=== PATIENT | female | born 1975 | race Caucasian/White ===

== ENCOUNTER → 2016-08-02 | Outpatient (CLI) | payer OTHER ==
[~2016-08-02] MED LIST: NO MEDICATIONS; SKELAXIN PO; VOLTAREN75 MG PO
--- NOTE | ~2016-08-02 | US6 ---
[facility] A Service of [facility] RADIOLOGY TEXT RESULTS PATIENT: NESS TREVIZO LOCATION: US : 77 UNIT #: [id number] AGE: [address]: Humza Lazaro MD SEX: F ORDER DR: [id number] [facility]. [place], [place] [address] [id number] O MR#: [id number] Acc #: [id number] NAME: NESS TREVIZO : 1975 SEX: F STUDY DATE/TIME: 08/02/2016 9:28 UNIT: CGUS ROOM: STUDY DESCRIPTION: US Abdominal Limited Attending Physician: Humza Lazaro M.D. Referring Physician: Humza Lazaro M.D. Ordering Physician: Humza Lazaro M.D. Primary Care Physician: Humza Lazaro M.D. MEDICAL IMAGING REPORT This report is preliminary unless electronic signature is present EXAM Right upper quadrant abdominal ultrasound. HISTORY Nausea for the past few weeks. Elevated liver enzyme levels. PROCEDURE Grayscale and Doppler imaging, right upper quadrant of the abdomen. COMPARISON None FINDINGS Visualized portions of the pancreas are unremarkable. Liver measures 16.6 cm. Common duct measures 3 mm. Unremarkable right kidney measuring approximately 11.1 cm. There are several stones in the gallbladder. There is no gallbladder wall thickening or pericholecystic fluid. IMPRESSION Cholelithiasis. No sonographic evidence for acute cholecystitis. Dictated by... Omero Clark M.D. THIS IS AN ELECTRONICALLY VERIFIED REPORT Omero Clark M.D. at 08/03/2016 7:05 AM DARIEN/richard TD: 08/02/2016 13:02 JOB #: [id number] [facility] A Service [facility] RADIOLOGY TEXT RESULTS PATIENT: NESS TREVIZO LOCATION: [facility] : [birth year] UNIT #: [id number] AGE: [address]: Humza Lazaro MD SEX: F ORDER DR: MEDICAL IMAGING REPORT Page 1 of 1 COPY
== END | disposition home or self-care (01) ==
LOC: CGUS 08:59
DX: R11.0 Nausea (principal); K80.20 Calculus of gallbladder without cholecystitis without obstruction
CPT/HCPCS: 76705

== ENCOUNTER 2016-08-09 14:35 | Emergency (ER) | payer OTHER ==
[2016-08-09 14:59] LABS: URINE SOURCE CLEAN CATCH
[2016-08-09 15:02] LABS: URINE APPEARANCE CLEAR; URINE BILIRUBIN NEG (NEG); URINE BLOOD 3+ (NEG); URINE COLOR YELLOW; URINE GLUCOSE NEG (NORM); URINE KETONE NEG (NEG); URINE LEUKOCYTE ESTERASE NEG (NEG); URINE NITRATE NEG (NEG); URINE PROTEIN TRACE (NEG); URINE SPECIFIC GRAVITY >=1.030 (1.003-1.035); URINE UROBILINOGEN 0.2 MG/DL (NORM)
[2016-08-09 15:09] LABS: MICRO INDICATED? YES
[2016-08-09 15:21] LABS: CULTURE INDICATED? NO; URINE BACTERIA NEG (NEG); URINE RBC 100-200 /[HPF] (0-2); URINE WBC 0-2 /[HPF] (0-5)
== END 2016-08-09 15:48 | disposition home or self-care (01) ==
LOC: SED 14:35
PROVIDERS: Emergency Medicine
DX: S39.012A Strain of muscle, fascia and tendon of lower back, initial encounter (principal); R31.9 Hematuria, unspecified; F17.200 Nicotine dependence, unspecified, uncomplicated; Z79.899 Other long term (current) drug therapy; X50.9XXA Other and unspecified overexertion or strenuous movements or postures, initial encounter
CPT/HCPCS: 81003; 84703; 99284

== ENCOUNTER → 2016-11-15 | Outpatient (CLI) | payer OTHER ==
--- NOTE | ~2016-11-15 | US98 ---
[facility] A Service of [facility] RADIOLOGY TEXT RESULTS PATIENT: NESS TREVIZO LOCATION: [facility] : 77 UNIT #: [id number] AGE: [address]: Jerri Latif SEX: F ORDER DR: [id number] [address] [address] [id number] O MR#: [id number] Acc #: [id number] NAME: NESS TREVIZO : 1975 SEX: F STUDY DATE/TIME: 11/15/2016 13:06 UNIT: SGUS ROOM: STUDY DESCRIPTION: US Pelvic Non-OB Complete Attending Physician: Jerri Latif A.P.R.N. Referring Physician: Jerri Latif A.P.R.N. Ordering Physician: Jerri Latif A.P.R.N. Primary Care Physician: Humza Lazaro M.D. MEDICAL IMAGING REPORT This report is preliminary unless electronic signature is present. EXAM Pelvic ultrasound INDICATIONS IUD in place. Observation for presence of IUD. Vaginal spotting off and on for the past 2 months. PROCEDURE Colvin-scale and Doppler imaging of the pelvis via transabdominal and transvaginal approach. FINDINGS Uterus is anteverted measures 8.5 x 3.7 x 5.6 cm. Right ovary measures 2.4 x 2.0 x 3.5 cm. There is an IUD is seen in the lower uterine segment and upper endocervical canal. There is a 7 mm nabothian cyst in the cervix. Endometrium measures approximately 5 mm in thickness. The left ovary not well seen but measures approximately 2.4 x 2.38 x 2.6 cm. IMPRESSION 1. IUD positioned in the lower uterine segment and upper endocervical canal. Endometrium is within normal limits. 2. Small nabothian cyst in the cervix. Dictated by... Omero Clark M.D. THIS IS AN ELECTRONICALLY VERIFIED REPORT Omero Clark M.D. at 11/17/2016 10:44 AM EED/cmm STS. [facility] A Service of [facility] & [facility] RADIOLOGY TEXT RESULTS PATIENT: NESS TREVIZO LOCATION: [facility] : 77 UNIT #: [id number] AGE: [address]: Jerri Latif SEX: F ORDER DR: TD: 11/16/2016 07:51 JOB #: [id number] MEDICAL IMAGING REPORT Page 1 of 1
== END | disposition home or self-care (01) ==
LOC: SGUS 13:30
DX: Z30.431 Encounter for routine checking of intrauterine contraceptive device (principal); N88.8 Other specified noninflammatory disorders of cervix uteri
CPT/HCPCS: 76830; 76856